=== PATIENT | female | born 1990 | race Caucasian/White ===

== ENCOUNTER → 2021-01-06 15:40 | Outpatient (CLI) | payer MEDICAID, SELFPAY ==
[2014-10-14 12:23] VITALS: BMI 29.4
[2021-01-06 16:59] LABS: Absolute Lymphocyte Count 0.92 X10^3/uL (0.83-4.51); Absolute Neutrophil Count 5.2 X10^3/uL (2.0-7.7); Basophil# 0.01 X10^3/uL; Basophil% 0.2 % (0-1); Eosinophil# 0.02 X10^3/uL; Eosinophils% 0.3 % (0-5); Hematocrit 35.7 % (37-47); Hemoglobin 11.9 g/dL (12.0-15.0); Lymphocyte # 0.92 X10^3/ul (0.83-4.51); Lymphocyte % 13.8 % (19-41); Mean Corp Hgb Conc 33.3 g/dL (32-36); Mean Corpuscular Hgb 29.2 pg (27.0-32.0); Mean Corpuscular Volume 87.5 fL (81-99); Mean Platelet Vol. 9.4 fl (6.2-12.0); Monocyte# 0.53 X10^3/uL; NRBC Flagged by Analyzer 0 % (0-5); Neutrophil # 5.15 X10^3/uL (2.7-7.7); Neutrophil % 77.4 % (47-70); Platelet Count 213 K/mm3 (150-450); RBC Distribution Width CV 12.1 % (11.6-14.6); RBC Distribution Width SD 38.9 fl (35.1-43.9); Red Blood Count 4.08 M/mm3 (4.2-5.4); White Blood Count 6.7 K/mm3 (4.4-11.0)
[2021-01-07 08:55] LABS: HIV - WCH Non-Reactive (Nonreactive); Hepatitis B Surface Antigen Non-Reactive (Nonreactive); Hepatitis C Antibody Non-Reactive (Nonreactive); Rubella IgG Reactive (Nonreactive); Syphilis Antibodies Non-reactive
[2021-01-10 16:09] LABS: Chlamydia By Nucleic Acid AMP Negative (Negative)
[2021-01-10 16:22] LABS: Gonococcus By Nucleic Acid AMP Negative (Negative)
[2021-01-12 20:25] LABS: HPV Reflexed? NOT INDICATED
== END ==
PROVIDERS: Visit Provider Obstetrics & Gynecology
DX: Z32.01 Encounter for pregnancy test, result positive (principal)
CPT/HCPCS: 36415; 85025; 86703; 86762; 86780; 86803; 87086; 87088; 87340; 87491; 87591; 88175; G0145

== ENCOUNTER → 2021-03-24 13:04 | Outpatient (CLI) | payer MEDICAID, SELFPAY ==
[2021-03-27 03:07] LABS: AFP MoM Value 0.84 (.); AFP Value-EIA 35.7 ng/mL (.); Comment Report (.); DIA MoM Value 1.36 (.); DIA Value-EIA 225.27 pg/mL (.); DSR (By Age) 789 (.); DSR (Second Trimester) 985 (.); Gestat. Age Based On As provided (.); Insulin Dep Diabetes No (.); Maternal Age At EDD 28.9 yr (.); hCG MoM 1.61 (.); hCG Value 57238 mIU/mL (.)
== END ==
PROVIDERS: Visit Provider Obstetrics & Gynecology
DX: Z34.82 Encounter for supervision of other normal pregnancy, second trimester (principal)
CPT/HCPCS: 36415; 82105; 82677; 84702

== ENCOUNTER → 2021-06-09 16:19 | Outpatient (CLI) | payer MEDICAID, SELFPAY ==
[2021-06-09 17:08] LABS: Hematocrit 30.1 % (37-47); Hemoglobin 10.1 g/dL (12.0-15.0); Mean Corp Hgb Conc 33.6 g/dL (32-36); Mean Corpuscular Hgb 29.4 pg (27.0-32.0); Mean Corpuscular Volume 87.5 fL (81-99); Mean Platelet Vol. 9.2 fl (6.2-12.0); Platelet Count 217 K/mm3 (150-450); RBC Distribution Width CV 12.6 % (11.6-14.6); RBC Distribution Width SD 39.8 fl (35.1-43.9); Red Blood Count 3.44 M/mm3 (4.2-5.4); White Blood Count 7.8 K/mm3 (4.4-11.0)
[2021-06-09 17:54] LABS: Glucose Challenge Gest 1H 50g 101 mg/dL (70-140)
== END ==
PROVIDERS: Visit Provider Obstetrics & Gynecology
DX: Z34.83 Encounter for supervision of other normal pregnancy, third trimester (principal)
CPT/HCPCS: 36415; 82950; 85027

== ENCOUNTER 2021-08-11 13:41 | Outpatient (CLI) | payer MEDICAID, SELFPAY | END 2021-08-11 23:59 | disposition home or self-care (01) | LOC: WOBLAB 13:42 | PROVIDERS: Visit Provider Obstetrics & Gynecology | DX: Z36.85 Encounter for antenatal screening for Streptococcus B (principal) | CPT/HCPCS: 87081 ==

== ENCOUNTER 2021-08-29 06:55 | Inpatient (IN) | payer MEDICAID, SELFPAY ==
[2021-08-29] VITALS (71 sets, daily range): BP systolic 104–144; BP diastolic 55–80; PULSE 92–137; RESP 16; TEMP 35.8–37.2; O2SAT 97–100; BMI 29.9
[2021-08-29] MEDS: Lactated Ringers 1,000 ML 50 ML IV (07:40)
[2021-08-29 07:58] LABS: Absolute Lymphocyte Count 1.48 X10^3/uL (0.83-4.51); Absolute Neutrophil Count 5.7 X10^3/uL (2.0-7.7); Basophil# 0.02 X10^3/uL; Basophil% 0.2 % (0-1); Eosinophil# 0.04 X10^3/uL; Eosinophils% 0.5 % (0-5); Hemoglobin 10.3 g/dL (12.0-15.0); Lymphocyte # 1.48 X10^3/ul (0.83-4.51); Lymphocyte % 18.3 % (19-41); Mean Corp Hgb Conc 32.2 g/dL (32-36); Mean Corpuscular Hgb 27.5 pg (27.0-32.0); Mean Corpuscular Volume 85.3 fL (81-99); Mean Platelet Vol. 9.8 fl (6.2-12.0); Monocyte# 0.82 X10^3/uL; Monocyte% 10.1 % (0-10); NRBC Flagged by Analyzer 0 % (0-5); Neutrophil # 5.71 X10^3/uL (2.7-7.7); Neutrophil % 70.7 % (47-70); Platelet Count 225 K/mm3 (150-450); RBC Distribution Width CV 14.7 % (11.6-14.6); RBC Distribution Width SD 45.5 fl (35.1-43.9); Red Blood Count 3.75 M/mm3 (4.2-5.4); White Blood Count 8.1 K/mm3 (4.4-11.0)
[2021-08-29] MEDS: Oxytocin 30 units/NS 500 ml 30 UNITS/500 ML IV.SOLN IV (08:26)
--- NOTE | 2021-08-29 11:58 | PCM.HP.BLA ---
History and Physical Date of Admission: 08/29/21 Chief complaint: Induction of labor at term History of present illness: 4-year-old G2, P1 at 40 weeks and 0 days with JOSIAS: 08/29/2021 by LMP arrives for induction of labor at term. Denies headache, visual changes, chest pain, shortness of breath, nausea vomiting, right upper quadrant pain. Patient states good movement. Obstetric history: G1: 41-week female 10/15/2014 G2: Current Past medical history: Patent PDA Medications: None Past surgical history: None Allergies: No known drug allergies Social history: Denies smoking, alcohol use, drug use Family history: Denies history DVT or PE Review of systems: Besides above pertinent positives a full review of systems was performed and found to be negative Physical exam: Pressure 119/75 temp 99.0 Fahrenheit SPO2 98% on room air General: Normal-appearing no acute distress HEENT: Normocephalic/atraumatic no cervical lymphadenopathy Cardiac/respiratory: No use of accessory muscles, nonlabored breathing Abdomen: Soft, nontender, gravid Pelvic exam: Cervical exam 3/50/-2, AROM clear fluid Extremities: No peripheral edema normal peripheral pulses Psych: Normal affect normal demeanor nonpressured speech Labs: White blood cell count 8.1 hemoglobin 10.3 hematocrit 32.0% platelets 225. Blood type AB+ antibody negative Assessment plan: 30-year-old at 40 weeks and 0 days for induction of labor at term Admit labor and delivery CEFM GBS negative Routine orders Anesthesia to see
[2021-08-29] MEDS: Lactated Ringers 500 ML 999 ML IV (12:54)
[2021-08-29] MEDS: fentaNYL-bupivacaine (epidural) 100 ML BAG EPIDURAL (13:52)
[2021-08-29] MEDS: Lactated Ringers 1,000 ML 200 ML IV (17:13)
[2021-08-29] MEDS: Oxytocin 30 units/NS 500 ml 30 UNITS/500 ML IV.SOLN 334 UNITS IV (18:10)
--- NOTE | 2021-08-29 18:24 | OP.PCM_ITS ---
Maternal Data Information Final JOISAS: 08/29/21 Vaginal Delivery Operative Information Date of Procedure: 08/29/21 Pre-Operative Diagnosis: Atkins intrauterine Post-Operative Diagnosis: Atkins intrauterine Surgery / Procedure Performed: Spontaneous Vaginal Delivery Type of Anesthesia: Epidural Estimated Blood Loss: 400cc Findings Description of Procedure: Spontaneous vaginal delivery of viable infant female. No nuchal cord. Baby to mom, cord clamped and cut. Baby to waiting nursery staff and [employer] for thick meconium fluid. Spontaneous delivery of placenta. First degree laceration repaired with figure of eight stitch. Infant A Gender: Female (1 minute): 8 (5 minute): 9
[2021-08-30 03:15] VITALS: BP 125/70; PULSE 75; RESP 16; TEMP 36.4; O2SAT 98
--- NOTE | 2021-08-30 08:56 | PCM.PN.OB ---
Subjective Subjective No complaints. Feels well, denies heavy lochia. She is breast and bottlefeeding. Denies painfulness, headache, vision changes, shortness of breath, chest pain. Objective Data Objective Data Vital Signs: Vital Signs Temp Pulse Resp BP Pulse Ox 97.6 F L 75 16 125/70 H 98 08/30/21 03:15 08/30/21 03:15 08/30/21 03:15 08/30/21 03:15 08/30/21 03:15 Oxygen Delivery Method Room Air Weight: 74.3 kg Body Mass Index (BMI) 29.9 Intake & Output: Intake and Output for Last 24 Hours 08/28/21 08/29/21 08/30/21 23:59 23:59 23:59 Intake Total 2741.37 / 2741.37 Output Total 875 / 875 200 / 200 Balance 1866.37 / 1866.37 -200 / -200 Lab / Micro Data Result Diagrams: 08/29/21 07:40 Labs: Laboratory Results - last 24 hr 08/29/21 07:40: Blood Type AB POSITIVE, Antibody Screen NEGATIVE Micro: Microbiology 08/29/21 09:35 Nasal Secretion SARS-CoV-2 Antigen (Rapid) - Final Physical Exam Const alert, oriented x3 and no apparent distress General Appearance: cooperative and comfortable HEENT normocephalic Resp Auscultation: clear to auscultation bilaterally Cardio regular rate, regular rhythm, S1 normal heart sound and S2 normal heart sound Narrative: lochia scant OB / External & Speculum: other Uterus Palpation: other OB Fundus firm and nontender Assessment & Plan (1) (spontaneous vaginal delivery): PLAN: PPD#1 s/p -AB positive, Rub immune, RPR nr, HIV nr, HBsAg neg, HCV Ab neg -Routine care -Breast and bottlefeeding -May d/c home this evening if patient desires.
--- NOTE | 2021-08-30 08:59 | DCINST_ITS ---
Discharge Instructions Diet Discharge Diet: No restrictions Activity Discharge Activity: Return to Normal Activity May resume sexual activity in: 4-6 weeks Lifting Restrictions: 20-23lb Dressing / Incision Call your doctor if you observe: Fever of 101 or Higher, Using more than 1 pad per hour, Shortness of breath, Chest pain, Calf discomfort, Uncontrolled pain and - (Persistent or severe headache) Follow Up Care Please Follow Up With: Mele Freeman MD When: 3 weeks for telehealth follow up 6 weeks for visit Test Results: Test results from this visit will be discussed in further detail at your follow-up appointment, if applicable. Discharge Plan Admission Admit Date/Time: 08/29/21 06:55 Primary Reason for Your Visit: Vaginal delivery Attending Provider: Wanda Freeman Primary Care Provider: Reena Ovalle NP Discharge Orders/Prescriptions Prescriptions: No Action Prenatabs FA 1 TABLET tablet 1 tab PO DAILY RF: 0 Referrals / Follow Up: Reena Ovalle NP, INFORMATION SYSTEMS SPECIALIST-C [Primary Care Provider] - Disposition Disposition (needs filled in before D/C Order can be placed): Home, Self Care
[2021-08-30 09:02] VITALS: BP 131/75; PULSE 99; RESP 16; TEMP 36.2; O2SAT 97
[2021-08-30 12:34] VITALS: BP 113/68; PULSE 72; RESP 17; TEMP 36.1; O2SAT 97
[2021-08-30 17:05] VITALS: BP 115/72; PULSE 91; RESP 14; TEMP 36.2
== END 2021-08-30 20:05 | disposition home or self-care (01) | DRG 560 ==
PROVIDERS: Obstetrics & Gynecology; Admitting Provider Student in an Organized Health Care Education/Training Program; PCP Nurse Practitioner Family; Visit Provider Student in an Organized Health Care Education/Training Program
DX: O48.0 Post-term pregnancy (principal); Z37.0 Single live birth; O70.0 First degree perineal laceration during delivery; Z3A.40 40 weeks gestation of pregnancy
CPT/HCPCS: 59050; 85025; 86850; 86900; 86901; 87426; 99218; J7120; G0378

== ENCOUNTER → 2022-06-23 | Outpatient (CLI) | payer MEDICAID, SELFPAY ==
[2022-06-23 11:24] LABS: Absolute Lymphocyte Count 0.76 X10^3/uL (0.83-4.51); Absolute Neutrophil Count 4.5 X10^3/uL (2.0-7.7); Basophil# 0.01 X10^3/uL; Basophil% 0.2 % (0-1); Eosinophil# 0.02 X10^3/uL; Eosinophils% 0.4 % (0-5); Hematocrit 36.8 % (37-47); Hemoglobin 12.8 g/dL (12.0-15.0); Lymphocyte # 0.76 X10^3/ul (0.83-4.51); Lymphocyte % 13.4 % (19-41); Mean Corp Hgb Conc 34.8 g/dL (32-36); Mean Corpuscular Hgb 29.4 pg (27.0-32.0); Mean Corpuscular Volume 84.6 fL (81-99); Mean Platelet Vol. 8.9 fl (6.2-12.0); Monocyte# 0.44 X10^3/uL; Monocyte% 7.7 % (0-10); NRBC Flagged by Analyzer 0 % (0-5); Neutrophil # 4.45 X10^3/uL (2.7-7.7); Neutrophil % 78.1 % (47-70); Platelet Count 211 K/mm3 (150-450); RBC Distribution Width CV 13.6 % (11.6-14.6); RBC Distribution Width SD 42.2 fl (35.1-43.9); Red Blood Count 4.35 M/mm3 (4.2-5.4); White Blood Count 5.7 K/mm3 (4.4-11.0)
[2022-06-23 15:12] LABS: HIV - WCH Non-Reactive (Nonreactive); Hepatitis B Surface Antigen Non-Reactive (Nonreactive); Hepatitis C Antibody Non-Reactive (Nonreactive); Rubella IgG Reactive (Nonreactive); Syphilis Antibodies Non-reactive
[2022-06-24 07:38] LABS: V-Zoster IgG (Immunity) 1363 index (Immune >165)
[2022-06-26 22:06] LABS: Chlamydia By Nucleic Acid AMP Negative (Negative)
[2022-06-27 12:41] LABS: Gonococcus By Nucleic Acid AMP Negative (Negative)
== END | disposition home or self-care (01) ==
LOC: WOBLAB 11:08
PROVIDERS: PCP Nurse Practitioner Family; Visit Provider Obstetrics & Gynecology
DX: Z34.81 Encounter for supervision of other normal pregnancy, first trimester (principal); Z11.3 Encounter for screening for infections with a predominantly sexual mode of transmission
CPT/HCPCS: 36415; 85025; 86703; 86762; 86780; 86787; 86803; 87086; 87088; 87340; 87491; 87591

== ENCOUNTER → 2022-07-21 | Outpatient (CLI) | payer MEDICAID, SELFPAY ==
[2022-07-21 11:20] LABS: Glucose Challenge Gest 1H 50g 149 mg/dL (70-140)
== END | disposition home or self-care (01) ==
LOC: WOBLAB 10:38
PROVIDERS: PCP Nurse Practitioner Family; Visit Provider Obstetrics & Gynecology
DX: Z34.82 Encounter for supervision of other normal pregnancy, second trimester (principal)
CPT/HCPCS: 36415; 82950

== ENCOUNTER → 2022-08-11 | Outpatient (CLI) | payer MEDICAID, SELFPAY ==
[2022-08-11 09:23] LABS: Glucose GTT-Gestation. Fasting 100 mg/dL (<105)
[2022-08-11 10:24] LABS: Glucose GTT-Gestational 1 Hr 114 mg/dL (<190)
[2022-08-11 11:44] LABS: Glucose GTT-Gestational 2 Hr 108 mg/dL (<165)
[2022-08-11 14:27] LABS: Glucose GTT-Gestational 3 Hr 89 L (<145)
== END | disposition home or self-care (01) ==
LOC: WOBLAB 08:34
PROVIDERS: PCP Nurse Practitioner Family; Visit Provider Obstetrics & Gynecology
DX: Z34.82 Encounter for supervision of other normal pregnancy, second trimester (principal)
CPT/HCPCS: 36415; 82951; 82952

== ENCOUNTER → 2022-10-20 | Outpatient (CLI) | payer MEDICAID, SELFPAY ==
[2022-10-20 09:30] LABS: Glucose GTT-Gestation. Fasting 91 mg/dL (<105)
[2022-10-20 10:30] LABS: Absolute Lymphocyte Count 1.13 X10^3/uL (0.83-4.51); Absolute Neutrophil Count 8.7 X10^3/uL (2.0-7.7); Basophil# 0.02 X10^3/uL; Basophil% 0.2 % (0-1); Eosinophil# 0.07 X10^3/uL; Eosinophils% 0.7 % (0-5); Hematocrit 37.3 % (37-47); Hemoglobin 12.2 g/dL (12.0-15.0); Lymphocyte # 1.13 X10^3/ul (0.83-4.51); Lymphocyte % 10.7 % (19-41); Mean Corp Hgb Conc 32.7 g/dL (32-36); Mean Corpuscular Hgb 30.9 pg (27.0-32.0); Mean Corpuscular Volume 94.4 fL (81-99); Mean Platelet Vol. 9.3 fl (6.2-12.0); Monocyte# 0.57 X10^3/uL; Monocyte% 5.4 % (0-10); NRBC Flagged by Analyzer 0 % (0-5); Neutrophil # 8.74 X10^3/uL (2.7-7.7); Neutrophil % 82.6 % (47-70); Platelet Count 198 K/mm3 (150-450); RBC Distribution Width CV 12.8 % (11.6-14.6); RBC Distribution Width SD 44.4 fl (35.1-43.9); Red Blood Count 3.95 M/mm3 (4.2-5.4); White Blood Count 10.6 K/mm3 (4.4-11.0)
[2022-10-20 10:46] LABS: Glucose GTT-Gestational 1 Hr 131 mg/dL (<190)
[2022-10-20 10:59] LABS: Syphilis Antibodies Non-reactive
[2022-10-20 11:23] LABS: Glucose GTT-Gestational 2 Hr 109 mg/dL (<165)
[2022-10-20 12:14] LABS: Glucose GTT-Gestational 3 Hr 127 L (<145)
== END | disposition home or self-care (01) ==
LOC: WOBLAB 08:37
PROVIDERS: PCP Nurse Practitioner Family; Visit Provider Obstetrics & Gynecology
DX: Z34.83 Encounter for supervision of other normal pregnancy, third trimester (principal)
CPT/HCPCS: 36415; 82951; 82952; 85025; 86780

== ENCOUNTER → 2022-12-19 | Outpatient (CLI) | payer MEDICAID, SELFPAY ==
[2022-12-19 11:25] LABS: Absolute Lymphocyte Count 1.29 X10^3/uL (0.83-4.51); Absolute Neutrophil Count 5.4 X10^3/uL (2.0-7.7); Basophil# 0.01 X10^3/uL; Basophil% 0.1 % (0-1); Eosinophil# 0.08 X10^3/uL; Eosinophils% 1.1 % (0-5); Hematocrit 38.2 % (37-47); Hemoglobin 12.5 g/dL (12.0-15.0); Lymphocyte # 1.29 X10^3/ul (0.83-4.51); Lymphocyte % 17.6 % (19-41); Mean Corp Hgb Conc 32.7 g/dL (32-36); Mean Corpuscular Hgb 30.4 pg (27.0-32.0); Mean Corpuscular Volume 92.9 fL (81-99); Mean Platelet Vol. 9.5 fl (6.2-12.0); Monocyte# 0.51 X10^3/uL; NRBC Flagged by Analyzer 0 % (0-5); Neutrophil % 73.9 % (47-70); Platelet Count 176 K/mm3 (150-450); RBC Distribution Width CV 12.9 % (11.6-14.6); RBC Distribution Width SD 43.7 fl (35.1-43.9); Red Blood Count 4.11 M/mm3 (4.2-5.4); White Blood Count 7.3 K/mm3 (4.4-11.0)
== END | disposition home or self-care (01) ==
LOC: WOBLAB 10:57
PROVIDERS: PCP Nurse Practitioner Family; Visit Provider Obstetrics & Gynecology
DX: Z34.83 Encounter for supervision of other normal pregnancy, third trimester (principal); Z36.85 Encounter for antenatal screening for Streptococcus B; Z3A.00 Weeks of gestation of pregnancy not specified
CPT/HCPCS: 36415; 85025; 87081

== ENCOUNTER 2023-01-09 06:55 | Inpatient (IN) | payer MEDICAID, SELFPAY ==
[2023-01-09] VITALS (30 sets, daily range): BP systolic 117–149; BP diastolic 61–102; PULSE 74–122; RESP 14; TEMP 36.4–36.9; O2SAT 96–100; BMI 35.1
[2023-01-09] MEDS: Lactated Ringers 1,000 ML 50 ML IV (07:45)
[2023-01-09] MEDS: Oxytocin 15 Units/NS 250ml 15 UNITS/250 ML IV.SOLN 2 UNITS IV (08:10)
--- NOTE | 2023-01-09 08:15 | PCM.HP.BLA ---
History and Physical Date of Admission: 01/09/23 Chief complaint: Induction of labor at term History present illness: 32-year-old at 39 weeks and 4 days with JOSIAS 01/12/2023 arrives for induction of labor at term. Denies headache, vision change, chest pain, shortness of breath, nausea vomit, right upper quadrant pain. Patient states good movement. is complicated by BMI 35 Obstetric history: G1: 40-week female 7 pounds 7 ounces G2: 40-week female 7 pounds 10 ounces G3: Current Past medical history: None Medications: vitamin Allergies: No known drug allergies Past surgical history: None Family history: No history of DVT or PE Social history: Denies smoking, alcohol use, drug use Review of systems: Besides above pertinent positives a full review of systems was performed and found to be negative Physical exam: Vitals: Blood pressure 134/81 pulse 88 General: Normal-appearing no acute distress HEENT: Normocephalic/atraumatic no cervical lymphadenopathy Cardiac/respiratory: No use of accessory muscles, nonlabored breathing Abdomen: Soft, nontender, gravid Pelvic exam: Cervical exam 360/-3 AROM with FSE clear fluid. FSE placed Extremities: No peripheral edema normal peripheral pulses Psych: Normal affect and remainder nonpressured speech Labs: Pending Assessment and plan: 32-year-old at 39 weeks and 4 days for induction of labor at term Admit labor delivery GBS negative Pitocin induction, AROM as above Routine orders
[2023-01-09 08:18] LABS: Absolute Lymphocyte Count 1.43 X10^3/uL (0.83-4.51); Absolute Neutrophil Count 5.5 X10^3/uL (2.0-7.7); Basophil# 0.01 X10^3/uL; Basophil% 0.1 % (0-1); Eosinophil# 0.06 X10^3/uL; Eosinophils% 0.8 % (0-5); Hematocrit 36.4 % (37-47); Hemoglobin 12.1 g/dL (12.0-15.0); Lymphocyte # 1.43 X10^3/ul (0.83-4.51); Lymphocyte % 18.8 % (19-41); Mean Corp Hgb Conc 33.2 g/dL (32-36); Mean Corpuscular Hgb 30.3 pg (27.0-32.0); Mean Corpuscular Volume 91.2 fL (81-99); Mean Platelet Vol. 10.2 fl (6.2-12.0); Monocyte# 0.58 X10^3/uL; Monocyte% 7.6 % (0-10); NRBC Flagged by Analyzer 0 % (0-5); Neutrophil % 72.4 % (47-70); Platelet Count 183 K/mm3 (150-450); RBC Distribution Width CV 13.2 % (11.6-14.6); RBC Distribution Width SD 43.7 fl (35.1-43.9); Red Blood Count 3.99 M/mm3 (4.2-5.4); White Blood Count 7.6 K/mm3 (4.4-11.0)
[2023-01-09 09:20] LABS: Syphilis Antibodies Non-reactive
[2023-01-09] MEDS: LACTATED RINGERS 500 ML 999 ML IV (12:03)
[2023-01-09] MEDS: fentaNYL-bupivacaine (epidural) 100 ML BAG EPIDURAL (12:25)
[2023-01-09] MEDS: Lactated Ringers 1,000 ML 100 ML IV (15:29)
[2023-01-09] MEDS: Oxytocin 15 Units/NS 250ml 15 UNITS/250 ML IV.SOLN 83 UNITS IV (16:00)
--- NOTE | 2023-01-09 16:00 | EX.PCM.OBRPT ---
Maternal Data Information Final JOSIAS: 01/12/23 Vaginal Delivery Operative Information Date of Procedure: 01/09/23 Pre-Operative Diagnosis: Atkins intrauterine at term Post-Operative Diagnosis: Atkins intrauterine at term Surgery / Procedure Performed: Spontaneous Vaginal Delivery Type of Anesthesia: Epidural Estimated Blood Loss: 300 cc Findings Description of Procedure: Spontaneous vaginal delivery of viable infant male. Nuchal cord x1, loose, reduced. Baby to mom. Cord clamped and cut. Spontaneous delivery of placenta. No lacerations. [employer] and respiratory present at delivery for meconium fluid. Infant A Gender: Male (1 minute): 8 (5 minute): 9 Delayed Cord Clamping: Yes
[2023-01-10 00:20] VITALS: BP 136/59; PULSE 94; RESP 14; TEMP 36.8; O2SAT 97
[2023-01-10 04:15] VITALS: BP 131/79; PULSE 89; RESP 16; TEMP 36.4; O2SAT 95
--- NOTE | 2023-01-10 07:25 | PCM.DC ---
Discharge Instructions Diet Discharge Diet: No restrictions Activity Discharge Activity: Return to Normal Activity, May Drive and May Shower May resume sexual activity in: 6-8 weeks Weight Bearing Status: Weight bearing as tolerated Dressing / Incision Call your doctor if your incision/area has: Continuous Slow Oozing and Foul Smelling Discharge Call your doctor if you observe: Fever of 101 or Higher, Shortness of breath and Chest pain Follow Up Care Please Follow Up With: Mele Freeman MD When: 4 to 6 weeks Test Results: Test results from this visit will be discussed in further detail at your follow-up appointment, if applicable. Discharge Plan Admission Admit Date/Time: 01/09/23 06:55 Attending Provider: Wanda Freeman Primary Care Provider: Reena Ovalle NP Discharge Orders/Prescriptions Prescriptions: No Action Prenatabs FA 1 TABLET tablet 1 tab PO DAILY ibuprofen 600 mg Tablet 600 mg PO Q6H PRN PRN (Reason: Pain Score 1-3) Qty: 30 0RF aspirin [Aspir-81] 81 mg Tablet,Delayed Release (Dr/Ec) 81 mg PO DAILY Rx Instructions: take daily Referrals / Follow Up: Reena Ovalle NP, LABELLING MACHINE OPERATOR-C [Primary Care Provider] - Disposition Discharge Orders: Discharge Patient (Routine); Ordered 01/10/23 Ordered By: Dr. Mele Freeman
--- NOTE | 2023-01-10 07:26 | PN.OBGYN_ITS ---
Subjective Subjective No overnight complaint Objective Data Objective Data Vital Signs: Vital Signs Temp Pulse Resp BP Pulse Ox O2 Del Method 97.6 F L 89 16 131/79 H 95 Room Air 01/10/23 04:15 01/10/23 04:15 01/10/23 04:15 01/10/23 04:15 01/10/23 04:15 01/10/23 04:15 Oxygen Delivery Method Room Air Weight: 192 lb Body Mass Index (BMI) 35.1 Intake & Output: Intake and Output for Last 24 Hours 01/08/23 01/09/23 01/10/23 23:59 23:59 23:59 Intake Total 1675.47 / 1675.47 Output Total 900 / 900 300 / 300 Balance 775.47 / 775.47 -300 / -300 Lab / Micro Data Result Diagrams: 01/09/23 07:45 Labs: Laboratory Results - last 24 hr 01/09/23 07:45: WBC 7.6, RBC 3.99 L, Hgb 12.1, Hct 36.4 L, MCV 91.2, MCH 30.3, MCHC 33.2, RDW Std Deviation 43.7, RDW Coeff of Kris 13.2, Plt Count 183, MPV 10.2, Immature Gran % (Auto) 0.300, Neut % (Auto) 72.4 H, Lymph % (Auto) 18.8 L, Grimes % (Auto) 7.6, Eos % (Auto) 0.8, Baso % (Auto) 0.1, Absolute Neuts (auto) 5.5, Absolute Lymphs (auto) 1.43, Nucleated RBC % 0 01/09/23 07:45: Blood Type AB POSITIVE, Antibody Screen NEGATIVE 01/09/23 07:45: Syphilis Total Ab Non-reactive Physical Exam Const alert, oriented x3, no apparent distress, average body habitus, healthy appearing and well nourished HEENT normocephalic and moist oral mucous membranes Eyes PERRL Neck full ROM Resp normal respiratory effort, no retractions and no use of accessory muscles GI GI Narrative: Soft, nontender, uterus firm and below umbilicus Extremity normal to inspection and full ROM Neuro moves all extremities and no focal motor deficits Psych mental status grossly normal, affect normal, speech normal and activity/motor behavior normal Assessment & Plan (1) (spontaneous vaginal delivery): PLAN: day 1. Formula feeding. Pain well controlled. Okay to discharge home today if okay with hedis registered nurse rn
[2023-01-10 08:24] VITALS: BP 133/77; PULSE 85; RESP 18; TEMP 36.4
[2023-01-10 11:22] VITALS: BP 133/86; PULSE 89; RESP 18; TEMP 36.4; O2SAT 97
[2023-01-10 17:18] VITALS: BP 136/87; PULSE 81; RESP 16; TEMP 36.7
== END 2023-01-10 18:49 | disposition home or self-care (01) | DRG 560 ==
PROVIDERS: Admitting Provider Student in an Organized Health Care Education/Training Program; PCP Nurse Practitioner Family; Referring Provider Student in an Organized Health Care Education/Training Program; Visit Provider Student in an Organized Health Care Education/Training Program
DX: O69.2XX0 Labor and delivery complicated by other cord entanglement, with compression, not applicable or unspecified (principal); Z37.0 Single live birth; O69.81X0 Labor and delivery complicated by cord around neck, without compression, not applicable or unspecified; O77.0 Labor and delivery complicated by meconium in amniotic fluid; Z79.82 Long term (current) use of aspirin; Z79.899 Other long term (current) drug therapy; Z3A.39 39 weeks gestation of pregnancy
CPT/HCPCS: 59025; 59050; 85025; 86780; 86850; 86900; 86901; 99221; J7120; G0378